=== PATIENT | male | born 1990 | race Caucasian/White ===

== ENCOUNTER 2017-05-03 21:01 | Emergency (ER) | payer OTHER ==
[~2017-05-03] VITALS: Ht 182.9 cm; Wt 86.8 kg
[2017-05-03 21:31] LABS: DAU SCREEN DISCLAIMER
[2017-05-03 21:32] LABS: HEMATOCRIT 48.7 % (39.2-51.8); HEMOGLOBIN 16.7 g/dL (13.7-18.0); WHITE BLOOD COUNT 7.4 x10^3/uL (3.4-10)
[2017-05-03 21:45] LABS: BLOOD UREA NITROGEN 8 mg/dL (7-18)
[2017-05-03 21:57] LABS: ASPARTATE AMINO TRANSFERASE 35 U/L (15-37)
[2017-05-03 21:59] LABS: ACETAMINOPHEN < 2 mcg/mL (10-30)
[2017-05-03] MEDS ORDERED: SODIUM CHLORIDE 0.9% 1,000ML IVBOLUS ONE (23:30)
[2017-05-04 03:23] VITALS: BP 145/90
== END 2017-05-04 04:03 | disposition home or self-care (01) ==
LOC: ED 05-04 00:48
DX: F10.129 Alcohol abuse with intoxication, unspecified (principal)
CPT/HCPCS: 36415; 80053; 80307; 80329; 81003; 84443; 85025; 96360; 96361; 99291; J7030; G0480

== ENCOUNTER 2017-10-13 14:44 | Inpatient (IN) | payer OTHER ==
[~2017-10-13] VITALS: Ht 185.4 cm; Wt 73.3 kg
[2017-10-13 15:40] LABS: BASOPHILS # (AUTO) 0.04 x10^3/uL (0-0.1); BASOPHILS % (AUTO) 1 % (0-1); EOSINOPHILS # (AUTO) 0.02 x10^3/uL (0-0.4); EOSINOPHILS % (AUTO) 0 % (1-7); LYMPHOCYTES # (AUTO) 1.96 x10^3/uL (1-3.4); LYMPHOCYTES % (AUTO) 23 % (22-44); MD NO; MEAN CORPUSCULAR HEMOGLOBIN 30.1 pg (27.5-34.5); MEAN CORPUSCULAR HGB CONC 33.7 g/dL (33.2-36.2); MEAN CORPUSCULAR VOLUME 89.4 fL (81-97); MONOCYTES % (AUTO) 7 % (2-9); NEUTROPHILS % (AUTO) 69 % (42-75); PLATELET COUNT 277 x10^3/uL (130-400); RED BLOOD COUNT 6.11 x10^6/uL (4.38-5.82); RED CELL DISTRIBUTION WIDTH 14.9 % (9.4-14.8)
[2017-10-13] MEDS ORDERED: NALT50TA PO (15:44)
[2017-10-13] MEDS ORDERED: DISU250T15 PO (15:44)
[2017-10-13 15:51] LABS: ALBUMIN 4.4 g/dL (3.4-5.0); ANION GAP 11 mmol/L (5-15); CALCIUM 8.5 mg/dL (8.5-10.1); CHLORIDE 107 mmol/L (98-107); CREATININE 0.88 mg/dL (0.7-1.3)
[2017-10-13 16:00] LABS: SALICYLATE LEVEL < 1.7 mg/dL (2.8-20.0)
[2017-10-13 16:01] LABS: ACETAMINOPHEN < 2 mcg/mL (10-30)
[2017-10-13 16:34] LABS: AMPHETAMINE SCREEN, URINE Negative (Negative); BARBITURATE SCREEN, URINE Negative (Negative); BENZODIAZEPINE SCREEN, URINE Negative (Negative); CANNABINOID SCREEN, URINE Negative (Negative); COCAINE SCREEN, URINE Negative (Negative); METHADONE SCREEN, URINE Negative (Negative); OPIATE SCREEN, URINE Negative (Negative)
[2017-10-13] MEDS ORDERED: ONDANSETRON ODT 4 MG PO ONE (21:00)
[2017-10-13] MEDS ORDERED: ONDANSETRON ODT 4 MG ONE (21:04)
[2017-10-14] MEDS: SODIUM CHLORIDE 0.9% 1,000 ML IV SCH ×2 (07:33→21:56)
[2017-10-14] MEDS: NICOTINE 7 MG/24 HR PATCH.TD24 TD SCH (08:00)
[2017-10-14] MEDS ORDERED: LORazepam 2 MG/ML, 1ML IVPush PRN (08:00)
[2017-10-14] MEDS ORDERED: hydrALAzine 20 MG/ML, 1ML IVPush PRN (08:00)
[2017-10-14] MEDS ORDERED: ACETAMINOPHEN 325 MG TABLET PO PRN (08:00)
[2017-10-14] MEDS ORDERED: ONDANSETRON 2MG/ML, 2ML IVPush PRN (08:00)
[2017-10-14 08:06] LABS: FREE T4 (FREE THYROXINE) 0.86 ng/dL (0.76-1.46); THYROID STIMULATING HORMONE 0.974 mIU/L (0.358-3.740)
[2017-10-14] MEDS ORDERED: NICOTINE 7 MG/24 HR PATCH.TD24 ONE (08:30)
[2017-10-14] MEDS ORDERED: THIAMINE 100MG TABLET ONE (09:21)
[2017-10-14] MEDS: THIAMINE 100MG TABLET PO SCH (09:30)
[2017-10-14] MEDS: DISULFIRAM 250 MG TABLET PO SCH (09:30)
[2017-10-14] MEDS: POTASSIUM CHLORIDE 20 MEQ, MAGNESIUM SULFATE 1 GM, FOLIC ACID 1 MG, MVI ADULT 10 ML in ... IV SCH (09:30)
[2017-10-14 14:54] LABS: CULTURE INDICATED? YES; MICROSCOPIC INDICATED
[2017-10-14] MEDS ORDERED: LORazepam 2 MG/ML, 1ML ONE (15:02)
[2017-10-14 18:30] VITALS: BP 145/93
[2017-10-14 21:21] VITALS: BP 139/96
[2017-10-15 04:29] VITALS: BP 140/95
[2017-10-15] MEDS: NICOTINE 7 MG/24 HR PATCH.TD24 TD SCH (08:00)
[2017-10-15 08:19] VITALS: BP 155/88
[2017-10-15] MEDS: POTASSIUM CHLORIDE 20 MEQ, MAGNESIUM SULFATE 1 GM, FOLIC ACID 1 MG, MVI ADULT 10 ML in ... IV SCH (09:55)
[2017-10-15] MEDS: DISULFIRAM 250 MG TABLET PO SCH (09:55)
[2017-10-15] MEDS: THIAMINE 100MG TABLET PO SCH (09:56)
[2017-10-15 14:04] VITALS: BP 153/87
[2017-10-15] MEDS ORDERED: LORazepam 2 MG/ML, 1ML IV PRN (18:00)
[2017-10-15] MEDS ORDERED: CHLORDIAZEPOXIDE 10 MG CAPSULE PO PRN (18:00)
[2017-10-15] MEDS ORDERED: CHLORDIAZEPOXIDE 25 MG CAPSULE PO PRN ×3 (18:00)
[2017-10-15 18:57] VITALS: BP 146/86
[2017-10-15] MEDS: MAGNESIUM CHLORIDE 64 MG TABLET.DR PO SCH (19:58)
[2017-10-16 02:59] VITALS: BP 157/94
[2017-10-16 07:14] VITALS: BP 139/94
[2017-10-16] MEDS: NICOTINE 7 MG/24 HR PATCH.TD24 TD SCH (08:00)
[2017-10-16] MEDS: MAGNESIUM CHLORIDE 64 MG TABLET.DR PO SCH (08:11)
[2017-10-16] MEDS: THIAMINE 100MG TABLET PO SCH (08:12)
[2017-10-16] MEDS: DISULFIRAM 250 MG TABLET PO SCH (08:12)
== END 2017-10-16 13:00 | disposition home or self-care (01) | DRG 897 ==
LOC: ED 17:48 → EDIP 10-14 03:13 → OBSVTOIN 10-14 03:13 → 3NE 10-14 15:15 → DCLOUNGE 10-16 12:56 → 3NE 10-16 12:57
PROVIDERS: ADMIT Internal Medicine; ATTEND Internal Medicine
DX: F10.239 Alcohol dependence with withdrawal, unspecified (principal); F10.229 Alcohol dependence with intoxication, unspecified; R45.851 Suicidal ideations; F32.9 Major depressive disorder, single episode, unspecified; R00.0 Tachycardia, unspecified; I10 Essential (primary) hypertension; F17.200 Nicotine dependence, unspecified, uncomplicated; F12.90 Cannabis use, unspecified, uncomplicated; Y90.8 Blood alcohol level of 240 mg/100 ml or more; Z91.19 Patient's noncompliance with other medical treatment and regimen; Z91.14 Patient's other noncompliance with medication regimen; Z80.7 Family history of other malignant neoplasms of lymphoid, hematopoietic and related tissues
CPT/HCPCS: 36415; 80048; 80307; 80329; 81001; 82040; 84439; 84443; 85025; 87086; 93005; 99285; J3475; J3480; Q0162; G0480; J2060; J7030; J7121

== ENCOUNTER 2018-04-26 19:20 | Emergency (ER) | payer MEDICAID, OTHER ==
[~2018-04-26] VITALS: Ht 182.9 cm; Wt 90.0 kg
[~2018-04-26 19:20] MED LIST: DISU250T15 PO; NALT50TA PO
[2018-04-26 20:08] LABS: BASOPHILS # (AUTO) 0.02 x10^3/uL (0-0.1); BASOPHILS % (AUTO) 0 % (0-1); EOSINOPHILS # (AUTO) 0.04 x10^3/uL (0-0.4); EOSINOPHILS % (AUTO) 1 % (1-7); LYMPHOCYTES # (AUTO) 2.62 x10^3/uL (1-3.4); LYMPHOCYTES % (AUTO) 31 % (22-44); MD NO; MEAN CORPUSCULAR HEMOGLOBIN 30.3 pg (27.5-34.5); MEAN CORPUSCULAR HGB CONC 34.6 g/dL (33.2-36.2); MEAN CORPUSCULAR VOLUME 87.5 fL (81-97); MEAN PLATELET VOLUME 8.4 fL (7.4-10.4); MONOCYTES # (AUTO) 0.62 x10^3/uL (0.2-0.8); MONOCYTES % (AUTO) 7 % (2-9); NEUTROPHILS # (AUTO) 5.15 x10^3/uL (1.8-6.8); NEUTROPHILS % (AUTO) 61 % (42-75); PLATELET COUNT 217 x10^3/uL (130-400); RED BLOOD COUNT 5.42 x10^6/uL (4.38-5.82); RED CELL DISTRIBUTION WIDTH 13.2 % (9.4-14.8)
[2018-04-26 20:09] LABS: ALANINE AMINOTRANSFERASE 21 U/L (12-78); ALBUMIN 4.3 g/dL (3.4-5.0); ANION GAP 7 mmol/L (5-15); CALCIUM 8.2 mg/dL (8.5-10.1); CHLORIDE 111 mmol/L (98-107); CREATININE 0.87 mg/dL (0.7-1.3)
[2018-04-26 20:11] LABS: ALKALINE PHOSPHATASE 77 U/L (45-117); BILIRUBIN,TOTAL 0.4 mg/dL (0.2-1.0); TOTAL PROTEIN 7.5 g/dL (6.4-8.2)
[2018-04-26 20:18] LABS: ACETAMINOPHEN < 2 mcg/mL (10-30); SALICYLATE LEVEL < 1.7 mg/dL (2.8-20.0)
[2018-04-26] MEDS ORDERED: SODIUM CHLORIDE 0.9% 1,000ML IVBOLUS ONE (21:30)
[2018-04-27 02:43] VITALS: BP 112/74
== END 2018-04-27 03:10 | disposition home or self-care (01) ==
LOC: ED 22:50
DX: F10.120 Alcohol abuse with intoxication, uncomplicated (principal)
CPT/HCPCS: 36415; 80053; 80307; 80329; 85025; 99284; G0480